=== PATIENT | female | born 1965 | race Two or more races ===

== ENCOUNTER → 2019-10-16 18:31 | Outpatient (CLI) | payer OTHER | END | disposition home or self-care (01) | LOC: LAB 18:31 | DX: J11.1 Influenza due to unidentified influenza virus with other respiratory manifestations (principal) ==

== ENCOUNTER 2019-10-30 18:57 | Emergency (ER) | payer OTHER ==
[~2019-10-30] VITALS: Ht 154.9 cm; Wt 90.7 kg
== END 2019-10-31 01:01 | disposition home or self-care (01) ==
LOC: ER 18:57
DX: J09.X2 Influenza due to identified novel influenza A virus with other respiratory manifestations (principal); J06.9 Acute upper respiratory infection, unspecified